=== PATIENT | female | born 1995 | race American Indian/Alaskan Native ===

== ENCOUNTER 2017-11-01 12:37 | Emergency (ER) | payer MEDICAID, OTHER ==
--- NOTE | 2017-11-01 13:19 | ED PDOC ---
Upper Extremity Pain/Injury Time Seen by Provider: 11/01/17 12:51 Chief Complaint (Nursing): Upper Extremity Problem/Injury History Per: Patient History/Exam Limitations: no limitations Onset/Duration Of Symptoms: Gradual (for several months) Quality: Dull Severity: Mild Exacerbating Factor(s): Movement Additional History Per: Patient, EMS Additional Complaint(s): Pt brought by ems for cold pt is homeless and was complaining of bl hand cold and tingling, pt states chronic shoulder pain with movement, pt denies any complaints. Past Medical History Reviewed: Historical Data, Nursing Documentation, Vital Signs Vital Signs: Last Vital Signs Temp 97.4 F L 11/01/17 12:45 Pulse 90 11/01/17 12:45 Resp 16 11/01/17 12:45 BP 160/81 H 11/01/17 12:45 Pulse Ox 100 11/01/17 12:45 - Medical History PMH: No Chronic Diseases - Family History Family History: States: Unknown Family Hx - Living Arrangements Living Arrangements: With Family - Social History Current smoker - smoking cessation education provided: No - Allergies Allergies/Adverse Reactions: Allergies Allergy/AdvReac Type Severity Reaction Status Date / Time No Known Allergies Allergy Verified 11/01/17 12:43 Review of Systems ROS Statement: Except As Marked, All Systems Reviewed And Found Negative Constitutional: Negative for: Fever, Chills Cardiovascular: Negative for: Chest Pain, Palpitations Respiratory: Negative for: Cough, Shortness of Breath Gastrointestinal: Negative for: Nausea, Vomiting, Abdominal Pain Musculoskeletal: Negative for: Neck Pain Physical Exam - Reviewed Nursing Documentation Reviewed: Yes Vital Signs Reviewed: Yes - Physical Exam Appears: Positive for: Well Head Exam: Positive for: ATRAUMATIC, NORMAL INSPECTION, NORMOCEPHALIC Eye Exam: Positive for: Normal appearance Neck: Positive for: Normal, Painless ROM, Supple Cardiovascular/Chest: Positive for: Regular Rate, Rhythm, Chest Non Tender. Negative for: Edema, Gallop, Murmur, Bradycardia, Tachycardia Respiratory: Positive for: Normal Breath Sounds. Negative for: Decreased Breath Sounds, Accessory Muscle Use, Crackles, Rales, Rhonchi, Stridor, Wheezing , Respiratory Distress Pulses-Radial (L): 2+ Pulses-Radial (R): 2+ Gastrointestinal/Abdominal: Positive for: Normal Exam, Bowel Sounds, Soft. Negative for: Tenderness Extremity: Positive for: Normal ROM (mild pain with left shoulder rom), Pedal Edema. Negative for: Tenderness, Calf Tenderness, Capillary Refill, Deformity Neurologic/Psych: Positive for: Alert, log scaler II-XII, Mood/Affect (calm), Gait ( steady). Negative for: Motor/Sensory Deficits, Facial Droop - ECG O2 Sat by Pulse Oximetry: 100 Medical Decision Making Medical Decision Making: pt given a list of homeless shelters for f/u. advise clinic f/u nsaids for pain. Disposition - Clinical Impression Clinical Impression: Chronic shoulder pain - Patient ED Disposition Is Patient to be Admitted: No Counseled Patient/Family Regarding: Studies Performed, Diagnosis, Need For Followup - Disposition Referrals: [facility] [Outside] (2 to 3 days) Disposition: Routine/Home Disposition Time: 13:18 Condition: GOOD Instructions: Shoulder Pain (ED)
[2017-11-01 14:06] VITALS: BP 126/78; PULSE 78; RESP 17; TEMP 96.6; O2SAT 98
== END 2017-11-01 14:07 | disposition home or self-care (01) ==
LOC: H.ER 12:37
DX: M25.512 Pain in left shoulder (principal); Z59.0 Homelessness